=== PATIENT | female | born 1940 | race Caucasian/White ===

== ENCOUNTER → 2020-04-19 | Outpatient (CLI) | payer MEDICARE ==
--- NOTE | 2020-04-19 10:33 | RAD ---
CT Abdomen and Pelvis without contrast History: Generalized abdominal pain Technique: Noncontrast CT imaging was performed of the abdomen and pelvis. Multiplanar images are reviewed. Exposure: One or more of the following individualized dose reduction techniques were utilized for this examination: 1. Automated exposure control 2. Adjustment of the mA and/or kV according to patient size 3. Use of iterative reconstruction technique. Comparison: None Findings: There is a 0.4 cm right lower lobe pulmonary nodule image 14 series 2 and 0.2 cm subpleural left lower lobe nodule image 10 series 2. There is mild gas distention of the visualized distal esophagus. No urolithiasis or hydronephrosis is identified. Accurate evaluation of abdominal visceral organs is limited without intravenous contrast. There is no obvious abnormality of the spleen, liver, or atrophic pancreas. Gallbladder is present without obvious intraluminal abnormality by CT. There is no adrenal nodularity. 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 Accurate evaluation of bowel is limited without oral contrast. There is no significant free air, free fluid, bowel dilatation. Normal caliber appendix is visualized without adjacent inflammatory change. There is extensive sigmoid diverticulosis, some degree of adjacent hazy and strandy change of the pericolonic fat also likely degree of wall thickening poorly characterized without oral contrast. There is also appearance of degree of wall thickening of the descending colon. Small bowel is not dilated. Proximal small bowel wall thickening in the left abdomen is not excluded by this exam. There is retained stool greater of the right and transverse colon. There is a small diverticulum arising from the transverse duodenum about 1.6 cm transverse. There is scattered calcified plaque of the abdominal aorta and iliac arteries. There is multilevel lumbar facet degenerative change. There is suspected fairly severe spinal stenosis L4-5. There is superior L1 compression deformity without osseous retropulsion of uncertain chronicity. Impression: 1. There is extensive sigmoid diverticulosis, also likely wall thickening and adjacent mild inflammatory type change as may be seen with diverticulitis or colitis, also appearance of possible descending colonic wall thickening as could be seen with mild colitis in the appropriate clinical setting. There is variable retained stool in the colon. Proximal small bowel wall thickening in the left abdomen as could be seen with enteritis is not excludable on this noncontrast exam. 2. There are some small pulmonary nodules of the visualized lung bases. If increased risk factors for neoplasm, dedicated chest CT could be indicated. Regarding the visualized nodules, no additional follow-up is needed if low risk factors for neoplasm, optional 12 month follow-up if increased risk factors for neoplasm as per revised Fleischner guidelines. 3. There is superior L1 compression part of uncertain chronicity. There is suspected fairly severe spinal stenosis at L4-5. Electronically signed by: Sergio Montes MD (04/19/2020 10:30 AM) [id number]
== END ==
LOC: PMG 09:26
PROVIDERS: ATTEND Physician Assistant Medical
DX: K57.30 Diverticulosis of large intestine without perforation or abscess without bleeding (principal); R91.8 Other nonspecific abnormal finding of lung field; G95.29 Other cord compression; M47.816 Spondylosis without myelopathy or radiculopathy, lumbar region; I70.0 Atherosclerosis of aorta; I70.8 Atherosclerosis of other arteries
CPT/HCPCS: 74176